=== PATIENT | female | born 1955 | race Caucasian/White ===

== ENCOUNTER → 2019-01-24 | Outpatient (CLI) | payer OTHER ==
--- NOTE | 2019-01-25 09:17 | REP ---
REPEAT DICTATION MRI BRAIN WITHOUT CONTRAST: HISTORY: Acute post traumatic headache. Preliminary report is provided at the time of examination by [facility]. No comparison brain imaging. TECHNIQUE: Axial and sagittal imaging planes are utilized for T1- and T2-weighted scans. Sequences include spin echo, fast spin echo, FLAIR, and diffusion weighted sequences. MRI FINDINGS: No bony calvarial lesion is seen. Craniocervical junction and upper cervical cord are normal in appearance. There is no MR evidence of significant paranasal sinus disease. No intraorbital abnormality is seen. There is no evidence of intracranial hemorrhage. There are patchy areas of increased T2 signal intensity on FLAIR and turbo spin echo T2 weighted scans in the periventricular white matter bilaterally consistent with small vessel atherosclerotic change. There is no evidence of restricted diffusion on diffusion-weighted scans to suggest acute ischemia. No extra-axial fluid collection is seen. No infarct, mass or midline shift is observed. IMPRESSION: Multifocal deep white matter small vessel microvascular changes. No post traumatic abnormality seen. No acute intracranial abnormality. Electronically Signed by Brady Olivera MD 01/25/2019 10:43 A
== END ==
LOC: M RAD 17:31
PROVIDERS: ATTEND Physician Assistant
DX: G44.319 Acute post-traumatic headache, not intractable (principal)

== ENCOUNTER → 2019-04-19 | Outpatient (CLI) | payer OTHER ==
--- NOTE | 2019-04-19 10:34 | REP ---
MRI lumbar spine without contrast: History: Rule out herniation and stenosis. Fracture first lumbar vertebra. Injury December 01, 2018 in a fall. No comparison imaging is available. Technique: Sagittal and axial T1 and T2-weighted scans are acquired in the usual fashion with and without fat saturation. Sequences include spin echo, turbo spin-echo, and STIR imaging sequences. MRI findings: Lumbar vertebral body heights are preserved. Cortical and medullary bone signal intensity are normal. There is no evidence to suggest recent or prior fracture at L1 or elsewhere in the lumbar spine. No ligament disruption is seen on inversion recovery images. The tip of the conus medullaris is normal in position and appearance at L1. There is no evidence of spondylolysis or spondylolisthesis. Axial and sagittal images at the L1-2 disc level demonstrate mild degenerative narrowing and diffuse disc bulging of the disc margin. This indents the ventral margin of the thecal sac. There is no central canal stenosis or foraminal narrowing. At L2-3, there is also mild diffuse disc bulging. No other finding. At L3-4, there is mild ligamentum flavum and facet hypertrophy noted in addition to mildly bulging posterior disc margin. No central canal stenosis or foraminal narrowing is seen however. At L4-5, there is moderate osteoarthritic facet hypertrophy and mild ligamentum flavum hypertrophy. There is mild diffuse disc bulging. No nerve root compression is seen. No central canal stenosis is noted. At L5-S1, there is a small central focal disc protrusion contacting the ventral margin of the thecal sac. This extends somewhat to the left of midline contacting the exiting left S1 root. There is moderate facet hypertrophy. No foraminal narrowing is seen. Impression: Mild degenerative spondylosis changes with multiple disc bulging. 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 There is a small central disc protrusion at L5-S1. There is no evidence of recent lumbar spine fracture. Electronically Signed by Brady Olivera MD 04/19/2019 12:58 P
== END ==
LOC: M RAD 07:31
PROVIDERS: ATTEND Physician Assistant
DX: S32.018D Other fracture of first lumbar vertebra, subsequent encounter for fracture with routine healing (principal); X58.XXXD Exposure to other specified factors, subsequent encounter; M47.896 Other spondylosis, lumbar region; M51.26 Other intervertebral disc displacement, lumbar region